=== PATIENT | male | born 1970 | race Caucasian/White ===

== ENCOUNTER 2022-03-28 13:48 | Inpatient (IN) ==
[2022-03-28] MEDS ORDERED: Naloxone 0.4 MG/ML INJ IVP PRN (16:58)
[2022-03-28] MEDS ORDERED: *HR* Dextrose 50 % in Water (Syg) 50 ML SYRINGE IVP PRN (17:47)
[2022-03-28] MEDS ORDERED: D5% in Water 1,000 ML IVC PRN (17:47)
[2022-03-28] MEDS ORDERED: Dextrose 4 GM Chewable Tablets PO PRN ×2 (17:47)
[2022-03-28] MEDS ORDERED: *HR* Heparin 5,000 UNIT/ML VIAL IVP ONE (18:12)
[2022-03-28] MEDS ORDERED: *HR* Heparin 5,000 UNIT/ML VIAL IVP PRN ×2 (18:12)
[2022-03-28] MEDS ORDERED: Heparin 25,000UNIT/250ML 1/2NS 25,000 UNIT/250 ML IV.SOLN IVC SCH (18:15)
[2022-03-28] MEDS: Acetaminophen 325 MG TABLET PO PRN (18:38)
[2022-03-28 19:20] LABS: Hemoglobin 15.3 g/dL (12.9-16.9); Mean Corpuscular HGB Conc 33.3 g/dL (31.6-35.5); Mean Corpuscular Hemoglobin 30.1 pg (28.0-33.3); Mean Corpuscular Volume 90.4 fL (83.0-100.0); Mean Platelet Volume 10.9 fL (9.4-12.4); Platelet Count 221 K/mcL (140-400); Red Blood Count 5.09 M/mcL (4.19-5.50); Red Cell Distribution Width 13.1 % (11.5-14.5); White Blood Count 10.4 K/mcL (4.3-11.1)
[2022-03-28] MEDS: Insulin LISPRO 300 UNITS/3 ML VIAL SUBQ SCH (19:54)
[2022-03-28 19:58] LABS: Heparin anti-factor XA UFH < 0.04 IU/mL (0.30-0.70)
[2022-03-28 19:59] LABS: INR 1.1; Prothrombin Time 12.5 Seconds (9.4-12.1)
[2022-03-29 01:47] LABS: Basophils # 0.1 K/mcL (0.0-0.2); Basophils % 0.5 %; Eosinophils # 0.3 K/mcL (0.0-0.6); Eosinophils % 2.6 %; Hematocrit 46.5 % (37.5-50.1); Immature Granulocytes % 0.7 % (0-4); Lymphocytes # 3.7 K/mcL (0.6-4.6); Lymphocytes % 36.2 %; Mean Corpuscular HGB Conc 32.3 g/dL (31.6-35.5); Mean Corpuscular Hemoglobin 29.7 pg (28.0-33.3); Mean Corpuscular Volume 92.1 fL (83.0-100.0); Mean Platelet Volume 11.2 fL (9.4-12.4); Monocytes # 0.5 K/mcL (0.0-1.3); Monocytes % 5.1 %; Neutrophils # 5.7 K/mcL (1.6-8.9); Platelet Count 242 K/mcL (140-400); Red Blood Count 5.05 M/mcL (4.19-5.50); Red Cell Distribution Width 13.2 % (11.5-14.5); Segmented Neutrophils % 54.9 %; White Blood Count 10.3 K/mcL (4.3-11.1)
[2022-03-29 02:03] LABS: BUN/Creatinine Ratio 13 (6-26); Blood Urea Nitrogen 13 mg/dL (6-20); Calcium 9.1 mg/dL (8.6-10.3); Carbon Dioxide 27 mEq/L (23-29); Chloride 100 mEq/L (98-107); Glucose 179 mg/dL (70-105); Osmolality,Calculated 285 (280-300); Potassium 3.8 mEq/L (3.5-5.1); Sodium 135 mEq/L (136-145); eGFR For African Americans > 60 (> 60); eGFR For Non-African Americans > 60 (> 60)
[2022-03-29] MEDS ORDERED: *HR* Enoxaparin 40 MG/0.4 ML SYRINGE SQ SCH (06:00)
[2022-03-29] MEDS: Insulin LISPRO 300 UNITS/3 ML VIAL SUBQ SCH ×4 (06:58→20:15)
[2022-03-29] MEDS ORDERED: Perflutren Lipid Microsphere 1.3 ML in 0.9 % Sodium Chloride 8.7 ML IVP PRN (07:47)
[2022-03-29] MEDS: lisinopriL 20 MG TABLET PO SCH (08:15)
[2022-03-29] MEDS ORDERED: Regadenoson 0.4 MG/5 ML SYRINGE IVP ONE (10:44)
[2022-03-29] MEDS: Aspirin 81 MG TAB.CHEW PO SCH (13:52)
[2022-03-29] MEDS: Acetaminophen 325 MG TABLET PO PRN (15:22)
[2022-03-29] MEDS: Nicotine 21 MG PATCH.TD24 TD SCH (17:20)
[2022-03-29 22:01] LABS: Estimated Average Glucose 192 mg/dl; Hemoglobin A1C 8.3 %
[2022-03-29 22:08] LABS: Chol/HDL Ratio 7.3 (0-4.9); Cholesterol 198 mg/dL (< 200); HDL Cholesterol 27 mg/dL (40-59); Triglycerides 535 mg/dL (< 150)
[2022-03-30 03:09] LABS: Basophils # 0.1 K/mcL (0.0-0.2); Basophils % 0.5 %; Eosinophils # 0.3 K/mcL (0.0-0.6); Eosinophils % 2.7 %; Hematocrit 44.3 % (37.5-50.1); Hemoglobin 14.8 g/dL (12.9-16.9); Immature Granulocytes % 0.5 % (0-4); Lymphocytes # 3.1 K/mcL (0.6-4.6); Lymphocytes % 32.2 %; Mean Corpuscular HGB Conc 33.4 g/dL (31.6-35.5); Mean Corpuscular Hemoglobin 30.1 pg (28.0-33.3); Mean Corpuscular Volume 90.2 fL (83.0-100.0); Mean Platelet Volume 11.1 fL (9.4-12.4); Monocytes # 0.8 K/mcL (0.0-1.3); Monocytes % 8.6 %; Neutrophils # 5.4 K/mcL (1.6-8.9); Platelet Count 226 K/mcL (140-400); Red Blood Count 4.91 M/mcL (4.19-5.50); Red Cell Distribution Width 12.7 % (11.5-14.5); Segmented Neutrophils % 55.5 %; White Blood Count 9.7 K/mcL (4.3-11.1)
[2022-03-30 03:20] LABS: BUN/Creatinine Ratio 13 (6-26); Blood Urea Nitrogen 12 mg/dL (6-20); Calcium 8.7 mg/dL (8.6-10.3); Carbon Dioxide 27 mEq/L (23-29); Chloride 103 mEq/L (98-107); Glucose 149 mg/dL (70-105); Osmolality,Calculated 287 (280-300); Potassium 3.8 mEq/L (3.5-5.1); Sodium 137 mEq/L (136-145); eGFR For African Americans > 60 (> 60); eGFR For Non-African Americans > 60 (> 60)
[2022-03-30] MEDS ORDERED: *HR* Enoxaparin 40 MG/0.4 ML SYRINGE SQ SCH (06:00)
[2022-03-30] MEDS: Insulin LISPRO 300 UNITS/3 ML VIAL SUBQ SCH ×4 (07:35→20:47)
[2022-03-30] MEDS: Aspirin 81 MG TAB.CHEW PO SCH (08:40)
[2022-03-30] MEDS: lisinopriL 20 MG TABLET PO SCH (08:40)
[2022-03-30] MEDS: Nicotine 21 MG PATCH.TD24 TD SCH (08:40)
[2022-03-30] MEDS ORDERED: *HR* Heparin 5,000 UNIT/ML VIAL IVP ONE (11:50)
[2022-03-30] MEDS ORDERED: *HR* Heparin 5,000 UNIT/ML VIAL IVP PRN (11:50)
[2022-03-30] MEDS ORDERED: Heparin 25,000UNIT/250ML 1/2NS 25,000 UNIT/250 ML IV.SOLN IVC SCH (12:00)
[2022-03-30 12:28] LABS: Hematocrit 47.2 % (37.5-50.1); Hemoglobin 15.6 g/dL (12.9-16.9); Mean Corpuscular HGB Conc 33.1 g/dL (31.6-35.5); Mean Corpuscular Hemoglobin 29.7 pg (28.0-33.3); Mean Corpuscular Volume 89.9 fL (83.0-100.0); Mean Platelet Volume 10.8 fL (9.4-12.4); Platelet Count 245 K/mcL (140-400); Red Blood Count 5.25 M/mcL (4.19-5.50); Red Cell Distribution Width 12.8 % (11.5-14.5)
[2022-03-30 12:35] LABS: Heparin anti-factor XA UFH < 0.04 IU/mL (0.30-0.70)
[2022-03-30 12:36] LABS: Prothrombin Time 11.5 Seconds (9.4-12.1)
[2022-03-30 18:54] LABS: Heparin anti-factor XA UFH < 0.04 IU/mL (0.30-0.70)
[2022-03-30 20:21] LABS: Activated Partial Thrombo Time 32.5 Seconds (26.0-36.0)
[2022-03-30] MEDS: *HR* Heparin 5,000 UNIT/ML VIAL IVP PRN (20:54)
[2022-03-30] MEDS: Heparin 25,000UNIT/250ML 1/2NS 25,000 UNIT/250 ML IV.SOLN IVC SCH (20:55)
[2022-03-31 03:18] LABS: Basophils # 0.1 K/mcL (0.0-0.2); Basophils % 0.5 %; Eosinophils # 0.3 K/mcL (0.0-0.6); Eosinophils % 2.3 %; Hematocrit 45.5 % (37.5-50.1); Hemoglobin 15.1 g/dL (12.9-16.9); Immature Granulocytes % 0.6 % (0-4); Lymphocytes # 3.9 K/mcL (0.6-4.6); Lymphocytes % 36.6 %; Mean Corpuscular HGB Conc 33.2 g/dL (31.6-35.5); Mean Corpuscular Hemoglobin 30.1 pg (28.0-33.3); Mean Corpuscular Volume 90.6 fL (83.0-100.0); Monocytes # 0.6 K/mcL (0.0-1.3); Monocytes % 5.8 %; Neutrophils # 5.8 K/mcL (1.6-8.9); Platelet Count 235 K/mcL (140-400); Red Blood Count 5.02 M/mcL (4.19-5.50); Red Cell Distribution Width 12.9 % (11.5-14.5); Segmented Neutrophils % 54.2 %; White Blood Count 10.7 K/mcL (4.3-11.1)
[2022-03-31 03:38] LABS: BUN/Creatinine Ratio 16 (6-26); Blood Urea Nitrogen 17 mg/dL (6-20); Calcium 9.3 mg/dL (8.6-10.3); Carbon Dioxide 27 mEq/L (23-29); Chloride 103 mEq/L (98-107); Glucose 140 mg/dL (70-105); Osmolality,Calculated 288 (280-300); Potassium 3.9 mEq/L (3.5-5.1); Sodium 137 mEq/L (136-145); eGFR For African Americans > 60 (> 60); eGFR For Non-African Americans > 60 (> 60)
[2022-03-31] MEDS: *HR* Heparin 5,000 UNIT/ML VIAL IVP PRN (03:44)
[2022-03-31] MEDS: Heparin 25,000UNIT/250ML 1/2NS 25,000 UNIT/250 ML IV.SOLN IVC SCH (06:28)
[2022-03-31] MEDS: Insulin LISPRO 300 UNITS/3 ML VIAL SUBQ SCH ×4 (06:51→20:02)
[2022-03-31] MEDS: Nicotine 21 MG PATCH.TD24 TD SCH (07:08)
[2022-03-31] MEDS: Aspirin 81 MG TAB.CHEW PO SCH (07:09)
[2022-03-31] MEDS: lisinopriL 20 MG TABLET PO SCH (07:09)
[2022-03-31] MEDS ORDERED: *HR* Heparin 10,000 UNIT/10 ML VIAL ONE (11:24)
[2022-03-31] MEDS ORDERED: *HR* Midazolam HCl 2 MG/2 ML VIAL ONE (11:24)
[2022-03-31] MEDS ORDERED: 0.9 % Sodium Chloride 2,000 ML ONE (11:24)
[2022-03-31] MEDS ORDERED: Heparin 1,000 UNITS/500 mL 500 ML ONE ×3 (11:24→13:12)
[2022-03-31] MEDS ORDERED: *HR* FentaNYL (PF) 100 MCG/2 ML VIAL ONE ×2 (11:24→13:10)
[2022-03-31] MEDS ORDERED: ISOVUE-370 200 ML INFUS..BTL ONE ×3 (11:25→13:19)
[2022-03-31] MEDS ORDERED: Nitroglycerin 1,000 MCG/5 ML VIAL IV ONE ×2 (11:25→13:15)
[2022-03-31] MEDS ORDERED: *HR* Ticagrelor 90 MG TABLET ONE (12:27)
[2022-03-31] MEDS ORDERED: Tirofiban 12.5 MG/250ML 12.5 MG/250 ML BAG ONE (12:28)
[2022-03-31] MEDS ORDERED: Tirofiban 12.5 MG/250ML 12.5 MG/250 ML BAG IVC SCH (13:45)
[2022-03-31] MEDS: traZODone 50 MG TABLET PO PRN (22:04)
[2022-04-01] MEDS: Insulin LISPRO 300 UNITS/3 ML VIAL SUBQ SCH ×4 (08:07→20:24)
[2022-04-01] MEDS: Aspirin 81 MG TAB.CHEW PO SCH (08:07)
[2022-04-01] MEDS: lisinopriL 20 MG TABLET PO SCH (08:07)
[2022-04-01] MEDS: Nicotine 21 MG PATCH.TD24 TD SCH (10:25)
[2022-04-01 15:18] LABS: Basophils % 0.3 %; Eosinophils # 0.2 K/mcL (0.0-0.6); Eosinophils % 2.3 %; Hematocrit 45.3 % (37.5-50.1); Hemoglobin 14.7 g/dL (12.9-16.9); Immature Granulocytes % 0.5 % (0-4); Lymphocytes # 2.2 K/mcL (0.6-4.6); Lymphocytes % 23.1 %; Mean Corpuscular HGB Conc 32.5 g/dL (31.6-35.5); Mean Corpuscular Hemoglobin 29.9 pg (28.0-33.3); Mean Corpuscular Volume 92.1 fL (83.0-100.0); Monocytes # 0.7 K/mcL (0.0-1.3); Monocytes % 7.7 %; Neutrophils # 6.1 K/mcL (1.6-8.9); Platelet Count 242 K/mcL (140-400); Red Blood Count 4.92 M/mcL (4.19-5.50); Segmented Neutrophils % 66.1 %; White Blood Count 9.3 K/mcL (4.3-11.1)
[2022-04-01 15:34] LABS: INR 1.1
[2022-04-01 15:37] LABS: Activated Partial Thrombo Time 31.9 Seconds (26.0-36.0); BUN/Creatinine Ratio 14 (6-26); Blood Urea Nitrogen 15 mg/dL (6-20); Calcium 9.3 mg/dL (8.6-10.3); Carbon Dioxide 26 mEq/L (23-29); Chloride 102 mEq/L (98-107); Chol/HDL Ratio 6.6 (0-4.9); Cholesterol 172 mg/dL (< 200); Glucose 161 mg/dL (70-105); HDL Cholesterol 26 mg/dL (40-59); Osmolality,Calculated 288 (280-300); Potassium 3.9 mEq/L (3.5-5.1); Sodium 137 mEq/L (136-145); Triglycerides 478 mg/dL (< 150); eGFR For African Americans > 60 (> 60); eGFR For Non-African Americans > 60 (> 60)
[2022-04-01] MEDS: Chlorhexidine Rinse 15 ML MOUTHWASH MM SCH (20:27)
[2022-04-01] MEDS ORDERED: *HR* Enoxaparin 40 MG/0.4 ML SYRINGE SQ ONE (21:00)
[2022-04-01] MEDS: traZODone 50 MG TABLET PO PRN (22:11)
[2022-04-02] MEDS ORDERED: Papaverine 60 MG/2 ML VIAL IVP ONE (05:45)
[2022-04-02] MEDS: Chlorhexidine Rinse 15 ML MOUTHWASH MM SCH ×2 (05:47→20:58)
[2022-04-02] MEDS ORDERED: CeFAZolin Syr 2,000MG/20 ML 2,000 MG/20 ML SYRINGE IVPB ONE (06:00)
[2022-04-02] MEDS ORDERED: Aspirin 81 MG TAB.CHEW PO ONE (06:00)
[2022-04-02] MEDS ORDERED: DOBUTamine 1,000 MG/250 ML BAG ONE (06:12)
[2022-04-02] MEDS ORDERED: *HR* Vasopressin 20 UNIT/ML VIAL ONE (06:12)
[2022-04-02] MEDS ORDERED: *HR* Midazolam HCl 5 MG/5 ML VIAL IVP ONE (06:20)
[2022-04-02] MEDS ORDERED: *HR* Propofol 200 MG/20 ML VIAL IVP ONE (06:21)
[2022-04-02] MEDS ORDERED: *HR* FentaNYL (PF) 1,000 MCG/20 ML VIAL ONE (06:21)
[2022-04-02] MEDS ORDERED: *HR* Rocuronium Bromide 50 MG/5 ML VIAL ONE ×4 (06:24→10:22)
[2022-04-02] MEDS ORDERED: *HR* Magnesium Sulfate 1 GM/2 ML VIAL ONE (06:26)
[2022-04-02] MEDS ORDERED: Famotidine 20 MG/2 ML VIAL ONE (06:26)
[2022-04-02] MEDS ORDERED: Lidocaine 2% Syringe 100 MG/5 ML ONE (06:42)
[2022-04-02] MEDS ORDERED: Norepinephrine 4 MG in 0.9 % Sodium Chloride 250 ML IVC PRN (07:00)
[2022-04-02] MEDS ORDERED: Buckersberg's Blood Cardioplegia PF ONE (07:00)
[2022-04-02] MEDS ORDERED: del Nido Cardioplegia Solution PF ONE ×2 (07:00)
[2022-04-02] MEDS ORDERED: Heparin 15,000 UNIT in 0.9 % Sodium Chloride 500 ML IV ONE (07:00)
[2022-04-02 07:24] LABS: ABG Base Excess -3 mEq/L (-2 to 3); ABG Chloride 107 mEq/L (98-107); ABG Glucose 136 mg/dL (60-95); ABG HCO3 25 mEq/L (21-27); ABG Ionized Calcium 1.19 mmol/L (1.15-1.35); ABG Oxygen Saturation 100 % (95-98); ABG PCO2 55 mmHg (35-45); ABG PH 7.26 pH Units (7.32-7.45); ABG PO2 189 mmHg (85-104); ABG TCO2 27 mEq/L (20-26)
[2022-04-02] MEDS ORDERED: ceFAZolin 1,000 MG in Water for inj. (sterile) 10 ML IVP ONE (08:25)
[2022-04-02 09:28] LABS: ABG Base Excess -4 mEq/L (-2 to 3); ABG Chloride 107 mEq/L (98-107); ABG Glucose 172 mg/dL (60-95); ABG HCO3 24 mEq/L (21-27); ABG Ionized Calcium 1.11 mmol/L (1.15-1.35); ABG Oxygen Saturation 92 % (95-98); ABG PCO2 50 mmHg (35-45); ABG PH 7.28 pH Units (7.32-7.45); ABG PO2 71 mmHg (85-104); ABG TCO2 25 mEq/L (20-26)
[2022-04-02] MEDS ORDERED: Potassium Chloride 40 MEQ/200 ML BAG IVPB PRN (09:55)
[2022-04-02] MEDS ORDERED: Ondansetron 4 MG/2 ML VIAL IVP PRN (09:55)
[2022-04-02] MEDS ORDERED: *HR* Dextrose 50 % in Water (Syg) 50 ML SYRINGE IVP PRN (09:55)
[2022-04-02] MEDS ORDERED: Calcium Gluconate 1gm/50mL 1 GM/50 ML BAG IVPB PRN (09:55)
[2022-04-02] MEDS ORDERED: *HR* FentaNYL (PF) 250 MCG/5 ML VIAL ONE (10:23)
[2022-04-02] MEDS ORDERED: *HR* Metoprolol 5 MG/5 ML VIAL IVP ONE (10:44)
[2022-04-02 10:47] LABS: ABG Base Excess -4 mEq/L (-2 to 3); ABG Chloride 107 mEq/L (98-107); ABG Glucose 198 mg/dL (60-95); ABG HCO3 22 mEq/L (21-27); ABG Oxygen Saturation 96 % (95-98); ABG PCO2 46 mmHg (35-45); ABG PO2 90 mmHg (85-104); ABG TCO2 24 mEq/L (20-26)
[2022-04-02] MEDS ORDERED: Calcium Gluconate 1,000 MG/10 ML VIAL ONE (10:55)
[2022-04-02] MEDS ORDERED: Protamine Sulfate 250 MG/25 ML VIAL IVP ONE (10:55)
[2022-04-02] MEDS ORDERED: Protamine Sulfate 50 MG/5 ML VIAL IVP ONE (11:00)
[2022-04-02 11:23] LABS: ABG Base Excess -4 mEq/L (-2 to 3); ABG Chloride 107 mEq/L (98-107); ABG Glucose 212 mg/dL (60-95); ABG HCO3 23 mEq/L (21-27); ABG Ionized Calcium 1.23 mmol/L (1.15-1.35); ABG Oxygen Saturation 97 % (95-98); ABG PCO2 49 mmHg (35-45); ABG PH 7.28 pH Units (7.32-7.45); ABG PO2 101 mmHg (85-104); ABG TCO2 25 mEq/L (20-26)
[2022-04-02 12:00] LABS: ABG Base Excess -4 mEq/L (-2 to 3); ABG HCO3 25 mEq/L (21-27); ABG Oxygen Saturation 93 % (95-98); ABG PCO2 59 mmHg (35-45); ABG PH 7.24 pH Units (7.32-7.45); ABG PO2 80 mmHg (85-104); ABG TCO2 27 mEq/L (20-26); Blood Gas Modality ASSIST CONTROL; Blood Gas VT 650 cc
[2022-04-02] MEDS ORDERED: niCARdipine 20 MG/200 ML MLS IVC ONE (12:01)
[2022-04-02 12:02] LABS: Basophils % 0.2 %; Eosinophils # 0.1 K/mcL (0.0-0.6); Eosinophils % 0.6 %; Hematocrit 43.6 % (37.5-50.1); Hemoglobin 14.1 g/dL (12.9-16.9); Immature Granulocytes % 1.7 % (0-4); Lymphocytes # 1.4 K/mcL (0.6-4.6); Lymphocytes % 8.5 %; Mean Corpuscular HGB Conc 32.3 g/dL (31.6-35.5); Mean Corpuscular Hemoglobin 29.9 pg (28.0-33.3); Mean Corpuscular Volume 92.6 fL (83.0-100.0); Mean Platelet Volume 10.8 fL (9.4-12.4); Monocytes # 0.5 K/mcL (0.0-1.3); Monocytes % 3.1 %; Platelet Count 208 K/mcL (140-400); Red Blood Count 4.71 M/mcL (4.19-5.50); Segmented Neutrophils % 85.9 %
[2022-04-02] MEDS: *HR* FentaNYL (PF) 100 MCG/2 ML VIAL IVP PRN ×3 (12:02→19:09)
[2022-04-02 12:03] LABS: Neutrophils # 14.4 K/mcL (1.6-8.9); White Blood Count 16.7 K/mcL (4.3-11.1)
[2022-04-02 12:14] LABS: INR 1.3; Prothrombin Time 14.5 Seconds (9.4-12.1)
[2022-04-02 12:17] LABS: Activated Partial Thrombo Time 29.3 Seconds (26.0-36.0)
[2022-04-02] MEDS ORDERED: Dexmedetomidine HCl 400 MCG/100 ML MLS IVC ONE (12:27)
[2022-04-02] MEDS ORDERED: Furosemide 40 MG/4 ML VIAL IVP ONE (12:31)
[2022-04-02] MEDS ORDERED: Ipratropium/Albuterol Neb 3 ML IH PRN ×2 (12:32→13:13)
[2022-04-02] MEDS ORDERED: Ketorolac 30 MG/ML VIAL IVP ONE (12:37)
[2022-04-02] MEDS: Norepinephrine 4 MG/254 ML IV.SOLN IVC SCH ×2 (12:48→13:40)
[2022-04-02] MEDS: DOBUTamine 1,000 MG/250 ML BAG IVC SCH (12:48)
[2022-04-02 12:59] LABS: BUN/Creatinine Ratio 15 (6-26); Blood Urea Nitrogen 15 mg/dL (6-20); Calcium 8.5 mg/dL (8.6-10.3); Carbon Dioxide 24 mEq/L (23-29); Chloride 105 mEq/L (98-107); Glucose 204 mg/dL (70-105); Magnesium 1.8 mg/dL (1.6-2.6); Osmolality,Calculated 285 (280-300); Potassium 5.4 mEq/L (3.5-5.1); Sodium 134 mEq/L (136-145); eGFR For African Americans > 60 (> 60); eGFR For Non-African Americans > 60 (> 60)
[2022-04-02 13:04] LABS: ABG Base Excess -4 mEq/L (-2 to 3); ABG HCO3 27 mEq/L (21-27); ABG Oxygen Saturation 89 % (95-98); ABG PCO2 71 mmHg (35-45); ABG PH 7.18 pH Units (7.32-7.45); ABG PO2 73 mmHg (85-104); ABG TCO2 29 mEq/L (20-26); Blood Gas Modality CPAP/PS; Blood Gas Pressure Support 12 cm H2O
[2022-04-02] MEDS: Albumin Human 5% 12.5 GM/250 ML IV.SOLN IVPB PRN ×4 (13:33→14:05)
[2022-04-02] MEDS: Insulin Regular, Human 100 UNIT/ML IV PRN ×3 (14:26→16:06)
[2022-04-02 14:38] LABS: ABG Base Excess -6 mEq/L (-2 to 3); ABG HCO3 22 mEq/L (21-27); ABG Oxygen Saturation 90 % (95-98); ABG PCO2 50 mmHg (35-45); ABG PH 7.25 pH Units (7.32-7.45); ABG PO2 68 mmHg (85-104); ABG TCO2 23 mEq/L (20-26); Blood Gas Modality AF; Blood Gas VT 450 cc
[2022-04-02] MEDS: Dexmedetomidine HCl 400 MCG/100 ML MLS IVC SCH ×3 (15:45→22:12)
[2022-04-02] MEDS: niCARdipine 20 MG/200 ML MLS IVC SCH ×3 (16:00→22:31)
[2022-04-02] MEDS: CeFAZolin 2 GM/120 ML BAG IVPB SCH ×2 (16:35→22:55)
[2022-04-02] MEDS: Pantoprazole 40 MG VIAL IVP SCH (17:26)
[2022-04-02] MEDS: Nicotine 21 MG PATCH.TD24 TD SCH (17:26)
[2022-04-02] MEDS: Aspirin Enteric Coated 81 MG Tablet PO SCH (17:27)
[2022-04-02] MEDS: *HR* OxyCODONE/APAP 5/325 TABLET PO PRN (17:27)
[2022-04-02 17:39] LABS: ABG Base Excess -3 mEq/L (-2 to 3); ABG HCO3 23 mEq/L (21-27); ABG Oxygen Saturation 99 % (95-98); ABG PCO2 46 mmHg (35-45); ABG PH 7.32 pH Units (7.32-7.45); ABG PO2 143 mmHg (85-104); ABG TCO2 25 mEq/L (20-26); Blood Gas Modality AF; Blood Gas VT 450 cc
[2022-04-02 22:01] LABS: ABG Base Excess -2 mEq/L (-2 to 3); ABG HCO3 24 mEq/L (21-27); ABG Oxygen Saturation 97 % (95-98); ABG PCO2 45 mmHg (35-45); ABG PH 7.34 pH Units (7.32-7.45); ABG PO2 92 mmHg (85-104); ABG TCO2 26 mEq/L (20-26); Blood Gas Modality ASSIST CONTROL; Blood Gas VT 450 cc
[2022-04-03] MEDS: Dexmedetomidine HCl 400 MCG/100 ML MLS IVC SCH ×4 (00:57→09:10)
[2022-04-03 03:27] LABS: ABG Base Excess -1 mEq/L (-2 to 3); ABG HCO3 25 mEq/L (21-27); ABG Oxygen Saturation 98 % (95-98); ABG PCO2 44 mmHg (35-45); ABG PH 7.35 pH Units (7.32-7.45); ABG PO2 112 mmHg (85-104); ABG TCO2 26 mEq/L (20-26); Blood Gas Modality ASSIST CONTROL; Blood Gas VT 450 cc
[2022-04-03] MEDS: Norepinephrine 4 MG/254 ML IV.SOLN IVC SCH ×2 (04:35→13:52)
[2022-04-03] MEDS: niCARdipine 20 MG/200 ML MLS IVC SCH ×4 (04:35→13:52)
[2022-04-03 05:09] LABS: Basophils % 0.1 %; Hematocrit 41.8 % (37.5-50.1); Hemoglobin 13.7 g/dL (12.9-16.9); Immature Granulocytes % 0.7 % (0-4); Lymphocytes # 2.2 K/mcL (0.6-4.6); Lymphocytes % 10.2 %; Mean Corpuscular HGB Conc 32.8 g/dL (31.6-35.5); Mean Corpuscular Hemoglobin 30.2 pg (28.0-33.3); Mean Corpuscular Volume 92.1 fL (83.0-100.0); Monocytes # 2.1 K/mcL (0.0-1.3); Monocytes % 9.4 %; Neutrophils # 17.6 K/mcL (1.6-8.9); Platelet Count 258 K/mcL (140-400); Red Blood Count 4.54 M/mcL (4.19-5.50); Red Cell Distribution Width 12.9 % (11.5-14.5); Segmented Neutrophils % 79.6 %; White Blood Count 22.1 K/mcL (4.3-11.1)
[2022-04-03 05:19] LABS: BUN/Creatinine Ratio 15 (6-26); Blood Urea Nitrogen 15 mg/dL (6-20); Calcium 8.8 mg/dL (8.6-10.3); Carbon Dioxide 24 mEq/L (23-29); Chloride 106 mEq/L (98-107); Glucose 160 mg/dL (70-105); INR 1.2; Magnesium 2.4 mg/dL (1.6-2.6); Osmolality,Calculated 290 (280-300); Potassium 4.8 mEq/L (3.5-5.1); Prothrombin Time 13.5 Seconds (9.4-12.1); Sodium 138 mEq/L (136-145); eGFR For African Americans > 60 (> 60); eGFR For Non-African Americans > 60 (> 60)
[2022-04-03 05:21] LABS: Activated Partial Thrombo Time 30.7 Seconds (26.0-36.0)
[2022-04-03] MEDS: *HR* Enoxaparin 40 MG/0.4 ML SYRINGE SQ SCH (05:24)
[2022-04-03 06:36] LABS: ABG Base Excess -2 mEq/L (-2 to 3); ABG HCO3 23 mEq/L (21-27); ABG Oxygen Saturation 97 % (95-98); ABG PCO2 40 mmHg (35-45); ABG PH 7.38 pH Units (7.32-7.45); ABG PO2 94 mmHg (85-104); ABG TCO2 25 mEq/L (20-26); Blood Gas Modality ASSIST CONTROL; Blood Gas VT 450 cc
[2022-04-03] MEDS: CeFAZolin 2 GM/120 ML BAG IVPB SCH ×2 (07:47→15:43)
[2022-04-03] MEDS: Pantoprazole 40 MG VIAL IVP SCH (07:47)
[2022-04-03] MEDS: Nicotine 21 MG PATCH.TD24 TD SCH (07:48)
[2022-04-03] MEDS: Chlorhexidine Rinse 15 ML MOUTHWASH MM SCH ×2 (07:49→20:35)
[2022-04-03] MEDS: Aspirin Enteric Coated 81 MG Tablet PO SCH (07:49)
[2022-04-03] MEDS: Aspirin 81 MG TAB.CHEW PO SCH (08:08)
[2022-04-03] MEDS: DOBUTamine 1,000 MG/250 ML BAG IVC SCH (09:09)
[2022-04-03] MEDS: *HR* OxyCODONE/APAP 5/325 TABLET PO PRN ×3 (11:00→20:35)
[2022-04-03] MEDS ORDERED: D5% in Water 1,000 ML IVC PRN (12:24)
[2022-04-03] MEDS ORDERED: Dextrose 4 GM Chewable Tablets PO PRN ×2 (12:24)
[2022-04-03] MEDS ORDERED: *HR* Dextrose 50 % in Water (Syg) 50 ML SYRINGE IVP PRN (12:24)
[2022-04-03] MEDS: Ketorolac 30 MG/ML VIAL IVP SCH ×2 (13:50→18:09)
[2022-04-03] MEDS: Insulin LISPRO 300 UNITS/3 ML VIAL SUBQ SCH ×2 (13:52→16:52)
[2022-04-03] MEDS: Albumin Human 5% 12.5 GM/250 ML IV.SOLN IVPB PRN ×2 (15:43→16:48)
[2022-04-03] MEDS ORDERED: Insulin LISPRO 300 UNITS/3 ML VIAL SUBQ SCH (21:00)
[2022-04-04] MEDS: *HR* OxyCODONE/APAP 5/325 TABLET PO PRN ×2 (04:30→08:08)
[2022-04-04] MEDS: CeFAZolin 2 GM/120 ML BAG IVPB SCH ×2 (04:31→08:11)
[2022-04-04 04:43] LABS: Basophils % 0.2 %; Eosinophils % 0.2 %; Hematocrit 38.2 % (37.5-50.1); Hemoglobin 12.4 g/dL (12.9-16.9); Immature Granulocytes % 0.7 % (0-4); Lymphocytes % 14.3 %; Mean Corpuscular HGB Conc 32.5 g/dL (31.6-35.5); Mean Corpuscular Hemoglobin 30.2 pg (28.0-33.3); Mean Corpuscular Volume 92.9 fL (83.0-100.0); Monocytes # 1.4 K/mcL (0.0-1.3); Monocytes % 10.1 %; Neutrophils # 10.4 K/mcL (1.6-8.9); Platelet Count 206 K/mcL (140-400); Red Blood Count 4.11 M/mcL (4.19-5.50); Red Cell Distribution Width 13.3 % (11.5-14.5); Segmented Neutrophils % 74.5 %
[2022-04-04 05:00] LABS: BUN/Creatinine Ratio 20 (6-26); Blood Urea Nitrogen 18 mg/dL (6-20); Calcium 8.5 mg/dL (8.6-10.3); Carbon Dioxide 26 mEq/L (23-29); Chloride 103 mEq/L (98-107); Glucose 125 mg/dL (70-105); Osmolality,Calculated 285 (280-300); Sodium 136 mEq/L (136-145); eGFR For African Americans > 60 (> 60); eGFR For Non-African Americans > 60 (> 60)
[2022-04-04] MEDS ORDERED: CeFAZolin 2 GM/120 ML BAG IVPB SCH (05:00)
[2022-04-04] MEDS: *HR* Enoxaparin 40 MG/0.4 ML SYRINGE SQ SCH (05:13)
[2022-04-04] MEDS: Nicotine 21 MG PATCH.TD24 TD SCH (07:59)
[2022-04-04] MEDS: Chlorhexidine Rinse 15 ML MOUTHWASH MM SCH ×2 (07:59→20:49)
[2022-04-04] MEDS: Aspirin 81 MG TAB.CHEW PO SCH (08:00)
[2022-04-04] MEDS: Pantoprazole 40 MG VIAL IVP SCH (08:00)
[2022-04-04] MEDS: Ketorolac 30 MG/ML VIAL IVP SCH (10:32)
[2022-04-04] MEDS ORDERED: Dextrose 4 GM Chewable Tablets PO PRN ×2 (13:05)
[2022-04-04] MEDS ORDERED: *HR* Dextrose 50 % in Water (Syg) 50 ML SYRINGE IVP PRN (13:05)
[2022-04-04] MEDS ORDERED: Ipratropium/Albuterol Neb 3 ML IH PRN (13:05)
[2022-04-04] MEDS ORDERED: DOBUTamine 1,000 MG/250 ML BAG IVC SCH (13:05)
[2022-04-04] MEDS ORDERED: D5% in Water 1,000 ML IVC PRN (13:05)
[2022-04-04] MEDS ORDERED: Acetaminophen 325 MG TABLET PO PRN (13:05)
[2022-04-04] MEDS ORDERED: Naloxone 0.4 MG/ML INJ IVP PRN (13:05)
[2022-04-04] MEDS ORDERED: Ondansetron 4 MG/2 ML VIAL IVP PRN (13:05)
[2022-04-04] MEDS ORDERED: traZODone 50 MG TABLET PO PRN (13:05)
[2022-04-04] MEDS ORDERED: *HR* OxyCODONE/APAP 5/325 TABLET PO PRN (13:05)
[2022-04-04] MEDS: niCARdipine 20 MG/200 ML MLS IVC SCH ×2 (13:57→16:40)
[2022-04-04] MEDS: Insulin LISPRO 300 UNITS/3 ML VIAL SUBQ SCH (16:39)
[2022-04-04] MEDS ORDERED: Insulin LISPRO 300 UNITS/3 ML VIAL SUBQ SCH (21:00)
[2022-04-05 01:55] LABS: Basophils # 0.1 K/mcL (0.0-0.2); Basophils % 0.3 %; Eosinophils # 0.2 K/mcL (0.0-0.6); Eosinophils % 1.1 %; Hematocrit 40.7 % (37.5-50.1); Hemoglobin 13.4 g/dL (12.9-16.9); Immature Granulocytes % 0.6 % (0-4); Lymphocytes # 2.1 K/mcL (0.6-4.6); Mean Corpuscular HGB Conc 32.9 g/dL (31.6-35.5); Mean Corpuscular Hemoglobin 30.1 pg (28.0-33.3); Mean Corpuscular Volume 91.5 fL (83.0-100.0); Mean Platelet Volume 10.8 fL (9.4-12.4); Monocytes # 1.4 K/mcL (0.0-1.3); Monocytes % 9.3 %; Neutrophils # 11.1 K/mcL (1.6-8.9); Platelet Count 241 K/mcL (140-400); Red Blood Count 4.45 M/mcL (4.19-5.50); Red Cell Distribution Width 13.2 % (11.5-14.5); Segmented Neutrophils % 74.7 %; White Blood Count 14.9 K/mcL (4.3-11.1)
[2022-04-05 02:14] LABS: BUN/Creatinine Ratio 18 (6-26); Blood Urea Nitrogen 15 mg/dL (6-20); Calcium 8.7 mg/dL (8.6-10.3); Carbon Dioxide 26 mEq/L (23-29); Chloride 103 mEq/L (98-107); Glucose 136 mg/dL (70-105); Osmolality,Calculated 287 (280-300); Potassium 4.1 mEq/L (3.5-5.1); Sodium 137 mEq/L (136-145); eGFR For African Americans > 60 (> 60); eGFR For Non-African Americans > 60 (> 60)
[2022-04-05] MEDS ORDERED: *HR* Enoxaparin 40 MG/0.4 ML SYRINGE SQ SCH (06:00)
[2022-04-05] MEDS: niCARdipine 20 MG/200 ML MLS IVC SCH ×3 (07:22→10:39)
[2022-04-05] MEDS: Chlorhexidine Rinse 15 ML MOUTHWASH MM SCH (08:07)
[2022-04-05] MEDS: Insulin LISPRO 300 UNITS/3 ML VIAL SUBQ SCH ×2 (08:07→12:22)
[2022-04-05] MEDS ORDERED: Aspirin 81 MG TAB.CHEW PO SCH (09:00)
[2022-04-05] MEDS ORDERED: Nicotine 21 MG PATCH.TD24 TD SCH (09:00)
[2022-04-05 11:20] VITALS: BP 137/91; PULSE 90; TEMP 97.6; O2SAT 94
[2022-04-05] MEDS: Ketorolac 30 MG/ML VIAL IVP SCH (12:24)
== END 2022-04-05 12:25 | disposition home or self-care (01) | DRG 165 ==
LOC: 3BNU → SUATTDRO 15:56 → ICNU 04-01 20:02 → 2NNU 04-04 12:28
PROVIDERS: ADMIT Internal Medicine; ATTEND Family Medicine

== ENCOUNTER 2022-07-21 12:23 | Observation (INO) ==
[2022-07-21] MEDS ORDERED: Ondansetron 4 MG/2 ML VIAL IVP PRN (16:00)
[2022-07-21] MEDS ORDERED: Naloxone 0.4 MG/ML INJ IVP PRN (16:00)
[2022-07-21] MEDS ORDERED: *HR* Dextrose 50 % in Water (Syg) 50 ML SYRINGE IVP PRN (16:21)
[2022-07-21] MEDS ORDERED: Dextrose Gel 15 GM/37.5 ML TUBE PO PRN ×2 (16:21)
[2022-07-21] MEDS ORDERED: D5% in Water 1,000 ML IVC PRN (16:21)
[2022-07-21] MEDS: Insulin LISPRO 300 UNITS/3 ML VIAL SUBQ SCH (16:45)
[2022-07-21] MEDS ORDERED: Insulin LISPRO 300 UNITS/3 ML VIAL SUBQ SCH (21:00)
[2022-07-21] MEDS ORDERED: hydrOXYzine pamoate 25 MG CAPSULE PO SCH (21:00)
[2022-07-21] MEDS: Gabapentin 300 MG CAPSULE PO SCH (22:00)
[2022-07-21] MEDS: *HR* Heparin 5,000 UNIT/ML VIAL SQ SCH (22:00)
[2022-07-22] MEDS: *HR* Heparin 5,000 UNIT/ML VIAL SQ SCH (05:58)
[2022-07-22 06:02] LABS: Basophils % 0.3 %; Eosinophils # 0.2 K/mcL (0.0-0.6); Hematocrit 47.2 % (37.5-50.1); Immature Granulocytes % 0.4 % (0-4); Lymphocytes # 2.4 K/mcL (0.6-4.6); Mean Corpuscular HGB Conc 31.8 g/dL (31.6-35.5); Mean Corpuscular Hemoglobin 28.1 pg (28.0-33.3); Mean Corpuscular Volume 88.6 fL (83.0-100.0); Mean Platelet Volume 10.7 fL (9.4-12.4); Monocytes # 0.6 K/mcL (0.0-1.3); Monocytes % 6.4 %; Neutrophils # 6.7 K/mcL (1.6-8.9); Platelet Count 234 K/mcL (140-400); Red Blood Count 5.33 M/mcL (4.19-5.50); Red Cell Distribution Width 13.9 % (11.5-14.5); Segmented Neutrophils % 66.9 %
[2022-07-22 06:30] LABS: BUN/Creatinine Ratio 10 (6-26); Blood Urea Nitrogen 10 mg/dL (6-20); Calcium 8.7 mg/dL (8.6-10.3); Carbon Dioxide 27 mEq/L (23-29); Chloride 105 mEq/L (98-107); Glucose 127 mg/dL (70-105); Magnesium 1.8 mg/dL (1.6-2.6); Osmolality,Calculated 287 (280-300); Potassium 4.3 mEq/L (3.5-5.1); Sodium 138 mEq/L (136-145)
[2022-07-22 07:06] VITALS: BP 134/82; PULSE 66; TEMP 98; O2SAT 90
[2022-07-22] MEDS: Insulin LISPRO 300 UNITS/3 ML VIAL SUBQ SCH ×2 (07:35→10:51)
[2022-07-22] MEDS: Gabapentin 300 MG CAPSULE PO SCH (08:53)
[2022-07-22] MEDS ORDERED: Aspirin Enteric Coated 81 MG Tablet PO SCH (09:00)
[2022-07-22] MEDS ORDERED: Isosorbide MONOnitrate (24 HR) 30 MG TAB.ER.24H PO SCH ×2 (09:00)
== END 2022-07-22 11:30 | disposition home or self-care (01) ==
LOC: 3BNU → SUATTDRO 15:35
PROVIDERS: ADMIT Internal Medicine; ATTEND Family Medicine